=== PATIENT | female | born 1990 | race Two or more races ===

== ENCOUNTER 2024-08-17 13:29 | Emergency (ER) | payer MEDICAID, SELFPAY ==
[2024-08-17 13:30] VITALS: BMI 34.9
[2024-08-17 14:20] VITALS: BP 132/85; PULSE 60; RESP 18; TEMP 36.9; O2SAT 100; BMI 31.2
--- NOTE | 2024-08-17 14:28 | EDNOTE_ITS ---
Upper Extremity Injury RME/HPI General Chief Complaint: Extremity Injury, Upper Stated Complaint: BURNING SENSATION TO LEFT BICEP Time Seen by Provider: 08/17/24 13:38 Arrival date/time: 08/17/24 13:29 RME / HPI RME / HPI narrative: 34-year-old female patient came in for evaluation regarding left arm medial aspect swelling, has been ongoing for 1 week, associated with tingling sensation. Patient is worried that it might be a complication from her Plexanon implant. Patient denies any chest pain. Denies any fever. Denies any shortness of breath denies any trauma denies any other complaints no medications taken prior travel Related Data Home Medications ?Medication ?Instructions ?Recorded ?Confirmed vit no.95-ferrous 1 tab PO QDAY 06/19/1907/03 fumarate 28 mg-folic acid 800 mcg tablet () Previous Rx's ?Medication ?Instructions ?Recorded meclizine 25 mg tablet 25 mg PO BID PRN dizziness # 10 tabs 03/10/24 Allergies Allergy/AdvReac Type Severity Reaction Status Date / Time No Known Allergies Allergy Verified 08/17/24 13:32 Review of Systems Review of Systems Narrative Review of Systems: Review of system reviewed and within normal limits except mentioned in HPI ED Exam Narrative Physical exam: VITAL SIGNS: Reviewed. GENERAL APPEARANCE: Alert and interactive, follows commands, no acute distress, HEAD AND FACE: Non-traumatic. ENT: PERRL, pink conjunctivitis, eyelid no trauma, Mucous membrane moist. NECK: Supple, nontender, no nuchal rigidity. CHEST: No tenderness, no crepitus, no paradoxical movement, no retractions. LUNGS: Clear, well ventilated, symmetric, no rales, no wheezing, no ronchi, no stridor, good breath sounds bilaterally. HEART: Regular rate, regular rhythm, no murmur, no gallops. ABDOMEN: Soft, positive bowel sounds, nondistended, no guarding, nontender, no rebound, no masses, RECTAL: Deferred. GENITAL: Deferred. NEUROLOGICAL: Gross motor function intact sensory function intact, Appropriate for age. MUSCULOSKELETAL: low back nontender, full range of motion. EXTREMITIES: Left upper extremity tenderness with mild swelling no redness nonfluctuant, full range of motion. SKIN: Color pink, dry, no rash, no lacerations, no abrasions, no contusions. LYMPHATICS: Deferred. Course Quality Measures none Orders Category Date Time Status US venous doppler UE LT Stat Exams 08/17/24 14:28 Completed Ibuprofen Tab [Motrin Tab] Med 08/17/24 14:28 Discontinued 800 mg PO X1 ONE Vital Signs Vital signs: Vital Signs Temperature 98.5 F 08/17/24 14:20 Pulse Rate 60 08/17/24 14:20 Respiratory Rate 18 08/17/24 14:20 Blood Pressure 132/85 H 08/17/24 14:20 Pulse Oximetry (%) 100 08/17/24 14:20 Oxygen Delivery Method Room Air 08/17/24 14:20 Extremity Injury MDM Narrative MDM Narrative:: 34-year-old female patient came in for evaluation regarding left arm medial aspect swelling, has been ongoing for 1 week, associated with tingling sensation. Patient is worried that it might be a complication from her Plexanon implant. Patient denies any chest pain. Denies any fever. Denies any shortness of breath denies any trauma denies any other complaints no medications taken prior travel Ultrasound of the upper extremities negative for DVT. Patient appears nontoxic and hemodynamically stable. Patient discharged home and instructed to follow-up with primary care provider in 24 to 48 hours. Instructed to return to the emergency department immediately if worsening of symptoms Patient data External records reviewed:: None Clinical information provided by:: patient Social determinants that could affect healthcare access:: none Patient has the following chronic illnesses:: None How is presenting disease/condition affected by chronic disease/condition?: exacerbated by Evaluation data The following diagnostics were reviewed and interpreted by me:: radiology exam(s) Lab and/or radiology exams considered but not ordered:: None Interpretation Summary: Ultrasound is negative for DVT Medications / Prescriptions Medications or Prescriptions considered but not ordered:: None Medication administrations:: Medication Administration History Discontinued Medications Ibuprofen (Ibuprofen Tab 400 Mg Tablet) 800 mg PO X1 ONE Stop: 08/17/24 14:29 Last Admin: 08/17/24 14:42 Dose: 800 mg Documented By: ANY Joseph Consultations Consultation(s) initiated? (list below): No Diagnosis Upper Extremity Injury Differential Diagnosis: other (DVT upper extremity, arm pain, cellulitis) Most likely diagnosis given after review of the tests above:: Arm swelling Admission Indicated Admission indicated?: not indicated Admission Request Was there a request for admission?: No Disposition Plan Disposition Plan: Discharge Discharge Attestation Discharge Attestation: The patient and all family members were given an opportunity to ask questions and understood the discharge instructions. Discharge instructions specifically effects, indications for sooner follow up or return to the emergency department, and the expected course of current diagnosis. Patient condition: Stable Discharge Plan Plan Patient Disposition: HOME (Self Care) Disposition Comment: Stable Prescriptions/Referrals Prescriptions/Med Rec: No Action PNV cmb#95-ferrous fumarate-FA [] 28 mg iron- 800 mcg Tablet 1 tab PO QDAY meclizine 25 mg tablet 25 mg PO BID PRN (Reason: dizziness) Qty: 10 0RF Referrals: Clement Roper MD [Primary Care Provider] - In 1 week Problem List Clinical Impression: Arm swelling Patient/Caregiver Discharge Instructions Discharge Activity: activity as tolerated Education Materials: ED Lymphedema Additional Instructions: Thank you for the opportunity for serving you today. You are stable for discharged . You are advised to: Follow-up with your PCP in 1 to 2 days Return to ED for worsening of symptoms Increase oral fluids Take [id number] Tylenol or Motrin as needed for pain Print Language: Citizen Of [place] Stand Alone Forms: Clara Award Info., Patient Portal Info Letter PA/JOSE Supervising Physician ESTER/JOSE Supervising Physician: MD Shawanda
--- NOTE | 2024-08-17 14:28 | XR_ITS ---
Examination: Duplex scan of the upper extremity, unilateral left complete Date and time of exam: August 17, 2024 1504 hrs. Indications: Onset left arm pain beginning 5 days ago Technique: Duplex scan of the extremity veins using B-mode/grayscale imaging and Doppler spectral analysis and color flow Attention is directed to internal echogenicity, compression and augmentation involving these veins, color flow assessment, spectral analysis Findings: Major deep venous structures in the extremity demonstrate normal course and caliber. There is no evidence of deep vein thrombosis. Normal color flow and spectral analysis Impression: Negative for DVT..
[2024-08-17] MEDS: IBUPROFEN TAB 400 MG TABLET 800 MG PO (14:42)
[2024-08-17 18:44] VITALS: BP 133/86; PULSE 63; RESP 18; TEMP 36.9; O2SAT 100
== END 2024-08-17 20:11 | disposition home or self-care (01) ==
PROVIDERS: Emergency Provider Emergency Medicine; PCP Family Medicine
DX: R22.32 Localized swelling, mass and lump, left upper limb (principal)
CPT/HCPCS: 93971; 99284; A9270

== ENCOUNTER 2024-12-18 16:25 | Emergency (ER) | payer MEDICAID, SELFPAY ==
[2024-12-18 16:26] VITALS: BMI 32.1
[2024-12-18 16:32] VITALS: BP 130/82; PULSE 66; RESP 16; TEMP 37; O2SAT 98
--- NOTE | 2024-12-18 16:39 | XR_ITS ---
Examination: Abdomen sonogram, Limited Date and time of exam: December 18, 2024 1451 hours INDICATIONS: Right upper abdominal pain beginning one month ago Technique: Real-time wong scale transabdominal sonographic images of the upper abdomen obtained. Findings: Normal gallbladder Normal common bile duct 0.2 cm Pancreatic atrophy 0.1 cm Liver 14 x 6 cm fatty infiltration smooth contour Normal hepatopedal portal venous flow Patent IVC IMPRESSION: Normal gallbladder Fatty liver
--- NOTE | 2024-12-18 16:39 | PD.EDRME ---
Rapid Medical Screening Exam RME Arrival date/time: 12/18/24 16:25 34-year-old female presents to the Emergency Department for complaints of right upper quadrant abdominal pain Chief Complaint: Abdominal Pain Time Seen by Provider: 12/18/24 16:32 Vital signs: Vital Signs Temperature 98.6 F 12/18/24 16:32 Pulse Rate 66 12/18/24 16:32 Respiratory Rate 16 12/18/24 16:32 Blood Pressure 130/82 12/18/24 16:32 Pulse Oximetry (%) 98 12/18/24 16:32 Oxygen Delivery Method Room Air 12/18/24 16:32
[2024-12-18 16:51] LABS: Basophils % (Auto) 0 % (0-2.5); Eosinophils # (Auto) 0.1 Thou/mm3 (0.0-0.5); Eosinophils % (Auto) 2 % (0-10); Hemoglobin 12.8 g/dL (12.0-16.0); Immature Granulocytes % (Auto) 0 % (0-0); Immature Granulocytes Auto 0.01 Thou/mm3 (0.00-0.00); Lymphocytes # (Auto) 1.6 Thou/mm3 (1.0-4.8); Lymphocytes % (Auto) 27 % (10-50); Mean Corpuscular HGB Conc 33.7 g/dl (31.0-37.0); Mean Corpuscular Hemoglobin 27.2 pg (25.0-35.0); Mean Corpuscular Volume 81 fL (80-100); Monocytes # (Auto) 0.4 Thou/mm3 (0.0-0.8); Monocytes % (Auto) 6 % (0-12); Neutrophils # (Auto) 3.7 Thou/mm3 (1.8-7.7); Neutrophils % (Auto) 64 % (37-80); Nucleated Red Blood Cell % 0 /100 WBC (0); Platelet Count 236 Thou/mm3 (140-440); RDW Standard Deviation 37.5 fL (36.4-46.3); Red Blood Count 4.71 Miln/mm3 (4.00-5.20); White Blood Count 5.8 Thou/mm3 (3.6-11.0)
[2024-12-18 16:59] LABS: Collection Type, Urine Clean Catch
[2024-12-18 17:10] LABS: Alanine Aminotransferase 24 U/L (10-49); Albumin, Serum 4.6 gm/dL (3.5-5.0); Albumin/Globulin Ratio 1.9 (1.2-2.2); Alkaline Phosphatase 58 U/L (46-116); Anion Gap 7 (7-16); Aspartate Amino Transferase 25 U/L (0-34); BUN/Creatinine Ratio 13 Ratio (12-20); Bilirubin,Total 0.7 mg/dL (0.3-1.2); Blood Urea Nitrogen 8 mg/dL (9-23); Calcium 8.9 mg/dL (8.3-10.6); Calcium (Corrected) 8.9 mg/dL (8.5-10.1); Carbon Dioxide 24.5 mMol/L (20.0-31.0); Chloride 108 mMol/L (98-107); Creatinine (Component) 0.6 mg/dL (0.6-1.3); Estimated Creatinine Clearance 126.9 mL/min (>60); Globulin 2.4 gm/dL (2.3-3.5); Glucose 93 mg/dL (74-106); Lipase 48 U/L (12-53); Osmolality,Calculated 275 (275-295); Potassium 4.3 mMol/L (3.4-5.1); Sodium 139 mMol/L (136-145); eGFR > 60 See Note
[2024-12-18 17:15] LABS: HCG Qualitative,Urine Negative
[2024-12-18 17:24] LABS: Bilirubin,Urine Negative (Negative); Blood,Urine Trace (Negative); Color,Urine Yellow (Lt Yel-Yel); Culture Indicated,Urine Contaminated; Glucose, Urine Negative (Negative); Ketones,Urine Trace (Negative); Leukocyte Esterase,Urine Positive (Negative); Nitrite,Urine Negative (Negative); PH,Urine 5.5 (5.0-7.0); Protein,Urine Trace (Neg - Trace); RBC,Urine 3 /hpf (0-3); Squamous Epithelial Cell,Urine 13 /hpf (0-5); Urobilinogen,Urine Negative mg/dL (0.0-1.0); WBC,Urine 12 /hpf (0-5)
[2024-12-18 17:27] LABS: Clarity,Urine Hazy (Clear/Hazy)
--- NOTE | 2024-12-18 18:37 | EDNOTE_ITS ---
ED Abdominal Pain RME/HPI General Chief Complaint: Abdominal Pain Stated complaint: RIGHT UPPER ABD PAIN, INT X 1MO Time seen by provider: 12/18/24 16:32 Arrival date/time: 12/18/24 16:25 RME / HPI RME / HPI narrative: 34-year-old female presents to the Emergency Department for complaints of right upper quadrant abdominal pain. Onset of symptoms for more than 1 month, described as dull ache, severity mild. Denies any vomiting denies any fever denies any other complaints. No medications taken prior to arrival. Related Data Home Medications ?Medication ?Instructions ?Recorded ?Confirmed vit no.95-ferrous 1 tab PO QDAY 06/19/1907/03 fumarate 28 mg-folic acid 800 mcg tablet () Previous Rx's ?Medication ?Instructions ?Recorded meclizine 25 mg tablet 25 mg PO BID PRN dizziness # 10 tabs 03/10/24 Allergies Allergy/AdvReac Type Severity Reaction Status Date / Time No Known Allergies Allergy Verified 12/18/24 16:28 Review of Systems Review of Systems Narrative Review of Systems: Review of system reviewed and within normal limits except mentioned in HPI ED Exam Narrative Physical exam: VITAL SIGNS: Reviewed. GENERAL APPEARANCE: Alert and interactive, follows commands, no acute distress, HEAD AND FACE: Non-traumatic. ENT: PERRL, pink conjunctivitis, eyelid no trauma, Mucous membrane moist. NECK: Supple, nontender, no nuchal rigidity. CHEST: No tenderness, no crepitus, no paradoxical movement, no retractions. LUNGS: Clear, well ventilated, symmetric, no rales, no wheezing, no ronchi, no stridor, good breath sounds bilaterally. HEART: Regular rate, regular rhythm, no murmur, no gallops. ABDOMEN: Soft, positive bowel sounds, nondistended, no guarding, nontender, no rebound, no masses, RECTAL: Deferred. GENITAL: Deferred. NEUROLOGICAL: Gross motor function intact sensory function intact, Appropriate for age. MUSCULOSKELETAL: low back nontender, full range of motion. EXTREMITIES: Nontender, full range of motion. SKIN: Color pink, dry, no rash, no lacerations, no abrasions, no contusions. LYMPHATICS: Deferred. Course Quality Measures none Orders Category Date Time Status US gall bladder Stat Exams 12/18/24 16:39 Completed CBC Stat Lab 12/18/24 16:44 Completed Comprehensive Metabolic Panel Stat Lab 12/18/24 16:44 Completed HCG Qualitative,Urine Stat Lab 12/18/24 16:50 Completed Lipase Stat Lab 12/18/24 16:44 Completed UA, C/S IF [Urinalysis, C/S if Indicated] Stat Lab 12/18/24 16:50 Completed Vital Signs Vital signs: Vital Signs Temperature 98.6 F 12/18/24 16:32 Pulse Rate 66 12/18/24 16:32 Respiratory Rate 16 12/18/24 16:32 Blood Pressure 130/82 12/18/24 16:32 Pulse Oximetry (%) 98 12/18/24 16:32 Oxygen Delivery Method Room Air 12/18/24 16:32 Abdominal Pain MDM MDM Narrative MDM Narrative:: 34-year-old female presents to the Emergency Department for complaints of right upper quadrant abdominal pain. Onset of symptoms for more than 1 month, described as dull ache, severity mild. Denies any vomiting denies any fever denies any other complaints. No medications taken prior to arrival. Patient's workup all came back normal including normal ultrasound of the g allbladder except for fatty liver. Results discussed with the patient. Prior to discharge patient is not having any right upper quadrant pain. Patient was advised to follow-up with PCP and for referral to GI specialist. Patient data External records reviewed:: None Clinical information provided by:: none Social determinants that could affect healthcare access:: none Patient has the following chronic illnesses:: None How is presenting disease/condition affected by chronic disease/condition?: no chronic disease Evaluation data The following diagnostics were reviewed and interpreted by me:: lab results and radiology exam(s) Lab and/or radiology exams considered but not ordered:: None Interpretation Summary: See results MDM Medications / Prescriptions Medications or Prescriptions considered but not ordered:: None Medication administrations:: None Consultations Consultation(s) initiated? (list below): No Diagnosis Differential diagnosis abdominal pain: abdominal pain, pancreatitis and small bowel obstruction Most likely diagnosis given after review of the tests above:: Fatty liver, right upper quadrant pain Admission Indicated Admission indicated?: not indicated Explain why admission is indicated or not indicated:: Stable Admission Request Was there a request for admission?: No Disposition Plan Disposition Plan: Discharge Discharge Attestation Discharge Attestation: The patient and all family members were given an opportunity to ask questions and understood the discharge instructions. Discharge instructions specifically effects, indications for sooner follow up or return to the emergency department, and the expected course of current diagnosis. Patient condition: Stable Discharge Plan Plan Patient Disposition: HOME (Self Care) Discharge Disposition comment: Stable Prescriptions/Referrals Prescriptions/Med Rec: No Action PNV cmb#95-ferrous fumarate-FA [] 28 mg iron- 800 mcg Tablet 1 tab PO QDAY meclizine 25 mg tablet 25 mg PO BID PRN (Reason: dizziness) Qty: 10 0RF Referrals: Elizabeth Kaplan PA-C [Primary Care Provider] - In 1 week Problem List Clinical Impression: Right upper quadrant pain, Fatty liver Patient/Caregiver Discharge Instructions Discharge Activity: activity as tolerated Education Materials: Nonalcoholic Fatty Liver ... Additional Instructions: Thank you for the opportunity for serving you today. You are stable for discharged . You are advised to: Follow-up with your PCP in 1 to 2 days for referral to GI specialist Return to ED for worsening of symptoms Increase oral fluids May take over the counter Motrin as needed for pain Print Language: Khmer Stand Alone Forms: Clara Award Info., Patient Portal Info Letter PA/NUTRITION SERVICES WORKER Supervising Physician PA/NUTRITION SERVICES WORKER Supervising Physician: MD Chasidy
[2024-12-18 19:19] VITALS: BP 119/79; PULSE 60; RESP 18; TEMP 36.6; O2SAT 98
== END 2024-12-18 19:28 | disposition home or self-care (01) ==
PROVIDERS: Nurse Practitioner Primary Care; Emergency Provider Emergency Medicine; PCP Physician Assistant Medical
DX: K76.0 Fatty (change of) liver, not elsewhere classified (principal)
CPT/HCPCS: 36415; 76705; 80053; 81001; 81025; 83690; 85025; 99284

== ENCOUNTER 2025-05-21 14:34 | Emergency (ER) | payer MEDICAID, SELFPAY ==
[2025-05-21 14:55] VITALS: BP 133/84; PULSE 62; RESP 18; TEMP 36.9; O2SAT 99
--- NOTE | 2025-05-21 14:58 | XR_ITS ---
EXAMINATION: Lumbar spine 3 views TECHNIQUE: AP lateral: Lateral lower lumbar spine 3 views Date and time: May 21, 2025, 1512 hours INDICATIONS: Patient fell today with injury to lower back, lower back pain. FINDINGS: Adequate alignment lumbar vertebral bodies. No lumbar fracture. Mild disc narrowing L5-S1 IMPRESSION: No lumbar fracture
--- NOTE | 2025-05-21 16:25 | PD.EDBACK ---
ED Back Injury Pain RME/HPI General Chief Complaint: Back Pain/Injury Stated Complaint: LOWER BACK PAIN, FELL @ 1230 Time Seen by Provider: 05/21/25 14:56 Arrival date/time: 05/21/25 14:34 35-year-old female presents to the emergency department due to complaint of lower back pain patient reports she had a ground-level fall with lower back pain today Limitations: no limitations Related Data Home Medications ?Medication ?Instructions ?Recorded ?Confirmed vit no.95-ferrous 1 tab PO QDAY 06/19/19 07/21/22 fumarate 28 mg-folic acid 800 mcg tablet () Previous Rx's ?Medication ?Instructions ?Recorded meclizine 25 mg tablet 25 mg PO BID PRN dizziness #10 tabs 03/10/24 cyclobenzaprine 10 mg tablet 10 mg PO TID PRN muscle spasm 10 05/21/25 days #30 tab-caps ibuprofen 800 mg tablet 800 mg PO TID PRN pain #30 tabs 05/21/25 Allergies Allergy/AdvReac Type Severity Reaction Status Date / Time No Known Allergies Allergy Verified 05/21/25 14:36 Review of Systems Review of Systems Systems Reviewed: All systems reviewed, normal except as documented Constitutional Constitutional: Reports system reviewed and no additional complaints, except as documented, Denies fever(s) and Denies headache(s) Eyes Eyes: Reports system reviewed and no additional complaints, except as documented and Denies blurry vision ENT Ears, Nose, Mouth, and Throat: Reports system reviewed and no additional complaints, except as documented, Denies headache(s), Denies nasal congestion and Denies nasal discharge Cardiovascular Cardiovascular: Reports system reviewed and no additional complaints, except as documented, Denies chest pain and Denies dyspnea Respiratory Respiratory: Reports system reviewed and no additional complaints, except as documented, Denies chest congestion, Denies cough and Denies dyspnea Gastrointestinal Gastrointestinal: Reports system reviewed and no additional complaints, except as documented and Denies abdominal pain Integumentary/Breasts Skin/Breast: Reports system reviewed and no additional complaints, except as documented and Denies rash Neurologic Neurologic: Reports system reviewed and no additional complaints, except as documented, Reports as per HPI and Denies headache(s) Past Medical History Past Medical History NEUROLOGIC: Negative Neurological Disorders CARDIAC: Negative Cardiac Disorders or Congestive Heart Failure RESPIRATORY: Negative Chronic Obstructive Pulmonary Disease (COPD) GASTROINTESTINAL: Positive Gastrointestinal Disorders, Hemorrhoids and Obesity; Negative Hepatitis or Colorectal Cancer GENITOURINARY: Positive Genitourinary Disorders and Kidney Stones; Negative Renal Disease or Prostate Cancer REPRODUCTIVE: Positive Previous Pregnancies; Negative Breast Cancer or Testicular Cancer MUSCULOSKELETAL: Positive Fractures (as a child); Negative Musculoskeletal Disorders or Bone Cancer ENDOCRINE: Negative Endocrine Disorders, Diabetes Mellitus Type 1 or Diabetes Mellitus Type 2 HEMATOLOGIC: Positive Blood Disorders and Anemia (HX with previous ) PSYCHO/SOCIAL: Negative Anxiety OTHER HISTORY: Negative Hospitalization, Autoimmune Disease, Down Syndrome, Developmental Delay, Shingles, Falls, Blood Transfusions, Blood Transfusion Reaction, Anesthesia Reactions, Organ Transplant, Chemotherapy, Radiation Therapy, Hyperbaric Therapy, MRSA, VRSA, Vancomycin-Resistant Enterococci, Human Immunodeficiency Virus (HIV), Chicken Pox, Measles, Mumps, Rubella ([place] Measles), Pertussis, Clostridium Difficile, Cancer, Breast Cancer, Cervical Cancer, Colorectal Cancer, Lung Cancer, Ovarian Cancer, Prostate Cancer or Testicular Cancer Family History FAMILY HISTORY: Positive Family Respiratory Disorders (brother-asthma), Family Cardiac Disorders (mother-HTN) and Family Cancer (AUNT OVARIAN); Negative Family Psychiatric Problems, Family Gastrointestinal Problems, Family Surgery or Family Anesthesia Reaction Surgical History SURGICAL: Negative Section or Organ Transplant Social History SMOKING STATUS: Never smoker SECOND HAND EXPOSURE: No ED Exam General Limitations: Present no limitations General appearance: Present alert and in no apparent distress Head Head exam: Present atraumatic Eye Eye exam: Present normal appearance, PERRL and EOMI; Absent conjunctival injection ENT ENT exam: Present normal exam, normal oropharynx and mucous membranes moist Neck Neck exam: Present normal inspection, full ROM and trachea midline Chest Chest inspection: Present normal inspection and symmetric chest wall rise Respiratory Respiratory exam: Present normal lung sounds bilaterally Cardiovascular Cardiovascular exam: Present regular rate, normal rhythm and normal heart sounds Abdominal Exam Abdominal exam: Present soft and normal bowel sounds; Absent distention, tenderness, guarding or rebound Extremities Exam Extremities exam: Present normal inspection and full ROM Back Exam Back exam: Present full ROM, tenderness, muscle spasm and paraspinal tenderness; Absent CVA tenderness (R) or CVA tenderness (L) Back 1 view image:  1. Back pain Neurological Exam Neurological exam: Present alert, oriented X3 and CN II-XII intact Psychiatric Psychiatric exam: Present normal affect and normal mood Skin Skin exam: Present warm, dry, intact and normal color Course Quality Measures none Orders Category Date Time Status XR lumbar spine 2-3V Stat Exams 05/21/25 14:58 Completed Ketorolac Inj [Toradol Inj] Med 05/21/25 14:58 Discontinued 30 mg IM X1 ONE Vital Signs Vital signs: Vital Signs Temperature 98.4 F 05/21/25 14:55 Pulse Rate 62 05/21/25 14:55 Respiratory Rate 18 05/21/25 14:55 Blood Pressure 133/84 H 05/21/25 14:55 Pulse Oximetry (%) 99 05/21/25 14:55 Oxygen Delivery Method Room Air 05/21/25 14:55 O2 saturation 99% r.a wnl Back Pain / Injury MDM Narrative MDM Narrative:: 35-year-old female presents to the emergency department due to complaint of lower back pain patient reports she had a ground-level fall with lower back pain today On exam patient well-appearing does not appear ill or toxic no acute distress Imaging obtained no acute emergent findings noted Patient pain medication On exam patient has no saddle anesthesia no loss of bowel or bladder Patient discharged home in no distress to follow-up with primary care doctor in the next 24 to 48 hours and for any worsening symptoms to return to the ER immediately Patient data External records reviewed:: [facility] previous records Clinical information provided by:: patient Social determinants that could affect healthcare access:: none Patient has the following chronic illnesses:: None How is presenting disease/condition affected by chronic disease/condition?: no chronic disease Evaluation data The following diagnostics were reviewed and interpreted by me:: lab results and radiology exam(s) Lab and/or radiology exams considered but not ordered:: Radiology obtained Interpretation Summary: Reviewed by me Medications / Prescriptions Medications or Prescriptions considered but not ordered:: Given Medication administrations:: Medication Administration History Discontinued Medications Ketorolac Tromethamine (Ketorolac Inj 30 Mg/Ml Vial) 30 mg IM X1 ONE Stop: 05/21/25 14:59 Last Admin: 05/21/25 16:42 Dose: 30 mg Documented By: Given Consultations Consultation(s) initiated? (list below): No Diagnosis Differential diagnosis back pain/injury: lumbar radiculopathy, sciatica and strain of lumbar region Most likely diagnosis given after review of the tests above:: Back pain Admission Indicated Admission indicated?: not indicated Admission Request Was there a request for admission?: No Disposition Plan Disposition Plan: Discharge Discharge Attestation Discharge Attestation: The patient and all family members were given an opportunity to ask questions and understood the discharge instructions. Discharge instructions specifically effects, indications for sooner follow up or return to the emergency department, and the expected course of current diagnosis. Patient condition: Stable Discharge Plan Plan Patient Disposition: HOME (Self Care) Discharge Disposition comment: Stable Prescriptions/Referrals Prescriptions/Med Rec: New cyclobenzaprine 10 mg tablet 10 mg PO TID PRN (Reason: muscle spasm) 10 Days Qty: 30 0RF ibuprofen 800 mg tablet 800 mg PO TID PRN (Reason: pain) Qty: 30 0RF No Action PNV no.95-ferrous fumarate-FA [] 28 mg iron- 800 mcg Tablet 1 tab PO QDAY meclizine 25 mg tablet 25 mg PO BID PRN (Reason: dizziness) Qty: 10 0RF Referrals: Clement Roper MD [Primary Care Provider, Family Practice] - 05/23/25 Problem List Clinical Impression: Low back pain Patient/Caregiver Discharge Instructions Education Materials: Self Care Back Day Additional Instructions: Please follow up with your primary care doctor in the next 24-48hrs for any worsening symptoms return here immediately Print Language: Mongolian Stand Alone Forms: Clara Award Info., Work/School Release, Patient Portal Info Letter PA/CHILDREN'S NURSERY ASSISTANT Supervising Physician PA/JOSE Supervising Physician: Dr. ca
[2025-05-21] MEDS: KETOROLAC INJ 30 MG/ML VIAL IM (16:42)
== END 2025-05-21 17:07 | disposition home or self-care (01) ==
PROVIDERS: Emergency Provider Family Medicine; PCP Family Medicine
DX: M54.50 Low back pain, unspecified (principal)
CPT/HCPCS: 72100; 96372; 99283; J1885